=== PATIENT | female | born 1950 | race Caucasian/White ===

== ENCOUNTER 2017-04-28 22:56 | Inpatient (IN) | payer BC ==
[~2017-04-28] VITALS: Ht 162.6 cm; Wt 74.9 kg
--- NOTE | 2017-04-28 23:17 | NUR ---
DR MASTERS AT BEDSIDE FOR MSE
[2017-04-28 23:32] LABS: BASOPHIL % 0.4 % (0-2); PLATELET COUNT 260 x10^3mcL (130-400); RED CELL DISTRIBUTION WIDTH 12.6 % (11.5-14.5)
[2017-04-28 23:42] LABS: CALCIUM 8.8 mg/dL (8.5-10.1); CARBON DIOXIDE 26.9 mmol/L (21-32); CHLORIDE SERUM 104 mmol/L (98-107); CREATININE SERUM 0.9 mg/dL (0.6-1.0); GFR1 > 60 mL/min; GLUCOSE SERUM 103 mg/dL (74-106); POTASSIUM SERUM 3.4 mmol/L (3.5-5.1); SODIUM SERUM 140 mmol/L (136-145)
[2017-04-28 23:47] LABS: ALBUMIN 3.6 g/dL (3.4-5.0); ALKALINE PHOSPHATASE 82 U/L (46-116); ALT/SGPT 33 U/L (14-59); AST/SGOT 20 U/L (15-37); BILIRUBIN TOTAL 0.2 mg/dL (0.20-1.00); TOTAL PROTEIN, SERUM 6.9 g/dL (6.4-8.2)
--- NOTE | 2017-04-29 00:10 | NUR ---
ADMINISTERED 40MEQ OF K+ PO FOR K+ LEVEL OF 3.4 PER MD ORDER.
--- NOTE | 2017-04-29 00:16 | NUR ---
PLEASE ENTER FULL NAMES OF STUDENT/RN Documentation completed by (Student Nurse): Documentation reviewed by (Registered Nurse): [facility]
--- NOTE | 2017-04-29 01:19 | NUR ---
REPORT CALLED TO TIFFANIE DUMONT TO ASSUME CARE OF PT
--- NOTE | 2017-04-29 01:34 | NUR ---
PT RECEIVED FROM ER VIA GUERNEY, ACCOMPANIED BY NURSE. ORIENTED PT TO ROOM AND SURROUNDINGS. A/O X4. TELE #3, NSR, ADMITS TO 3/10 CHEST PAIN AND BACK PAIN, BUT REPORTS IT IS TOLERABLE. PT DENIES PAIN MEDS AT THIS TIME. PULSES PALPABLE, NO EDEMA NOTED. ON 02 2L NC, 02 SAT-95%. LUNG SOUNDS CTA. ABD IS SOFT AND NONDISTENDED. LAST BM-04/28/15, FORMED. VOIDS FREELY, DENIES PAIN UPON URINATION. PT IS AMBULATORY. SKIN IS INTACT. IVF INFUSING WELL TO LH, NS @ 100 ML/HR. BED IN LOWEST SETTING, SIDE RAILS UP X2, CALL LIGHT WITHIN REACH. WILL CONTINUE TO MONITOR.
[2017-04-29 02:10] VITALS: BP 125/60
[2017-04-29 02:22] LABS: CHOLESTEROL/HDL RATIO 4.1; PHOSPHOROUS 3.7 mg/dL (2.5-4.9)
[2017-04-29 02:29] LABS: FREE T4 0.94 ng/dL (0.76-1.46); FREE THYROXINE INDEX 2.4 ug/dL (1.4-4.5); T4(THYROXINE) 7.6 ug/dL (4.7-13.3)
[2017-04-29 03:04] LABS: UA SPECIFIC GRAVITY 1.015 (1.005-1.035); microscopic required? YES; urine erythrocyte TRACE (NEGATIVE)
[2017-04-29] MEDS ORDERED: ATORVASTATIN CA10 M1 (03:11)
[2017-04-29 05:19] LABS: T3 TOTAL 0.95 ng/mL
[2017-04-29 06:05] VITALS: BP 115/79
[2017-04-29 06:16] LABS: BASOPHIL % 0.5 % (0-2); PLATELET COUNT 235 x10^3mcL (130-400); RED CELL DISTRIBUTION WIDTH 13.1 % (11.5-14.5)
[2017-04-29 06:21] LABS: CALCIUM 8.7 mg/dL (8.5-10.1); CARBON DIOXIDE 26.6 mmol/L (21-32); CHLORIDE SERUM 108 mmol/L (98-107); CREATININE SERUM 0.8 mg/dL (0.6-1.0); GFR1 > 60 mL/min; GLUCOSE SERUM 95 mg/dL (74-106); POTASSIUM SERUM 4.5 mmol/L (3.5-5.1); SODIUM SERUM 144 mmol/L (136-145)
--- NOTE | 2017-04-29 06:43 | NUR ---
PT SLEPT WELL THROUGHOUT THE NIGHT. PT COMPLAINED OF MILD CHEST PAIN, BUT DECLINES MEDICATIONS FOR NOW. PT ADMITS TO BACK PAIN, ADMINISTERED NORCO ORDERED. IVF INFUSING WELL TO LH. WILL ENDORSE CARE TO AM NURSE.
--- NOTE | 2017-04-29 07:44 | NUR ---
PT RECEIVED DURING CHANGE OF SHIFT, A/OX4, TELE 3, NSR, DENIES CHEST PAIN AT THIS TIME, PULSES PRESENT, NO EDEMA, SCD'S AT BEDSIDE, LUNGS CTA ON RA, DENIES SOB, BREATHING EVEN AND UNLABORED, BOWEL SOUNDS ACTIVE, LBM 04/28/17 FORMED, ABLE TO URINATE, AMBULATORY, SKIN WARM DRY INTACT, MEDICATED FOR BACK PAIN WITH NORCO AT 0630 BY PREVIOUS RN, C/O BACK PAIN 04/24, WILL CONTINUE TO ASSESS FOR MEDICATION EFFECTIVENESS, IV TO LT HAND INFUSING NS AT 20ML/HR, CALL LIGHT WITHIN REACH, CALM AND COOPERATIVE AT THIS TIME, WILL CONTINUE TO MONITOR.
--- NOTE | 2017-04-29 08:55 | NUR ---
PT STATES BACK PAIN IS DOWN TO 5/10, DENIES SOB, PHARMACY NOTIFIED RN THAT PROTONIX IV NEEDS TO BE CHANGED TO PO, WILL NOTIFY RESIDENT, WILL CONTINUE TO MONITOR.
--- NOTE | 2017-04-29 09:06 | NUR ---
DR. JEAN AND RESIDENTS MAKING ROUNDS, PLAN OF CARE DISCUSSED.
[2017-04-29 09:12] VITALS: BP 122/57
--- NOTE | 2017-04-29 10:18 | NUR ---
PT C/O UPPER BACK PAIN 02/22, WILL MEDICATE PER EMAR, DENIES SOB, CALL LIGHT WITHIN REACH, WILL CONTINUE TO MONITOR.
--- NOTE | 2017-04-29 11:35 | NUR ---
PT STATES PAIN MEDICATION IS EFFECTIVE, DENIES SOB, BS 84, NO COVERAGE NEEDED, CALL LIGHT WITHIN REACH, WILL CONTINUE TO MONITOR.
--- NOTE | 2017-04-29 11:51 | NUR ---
ECHOCARDIOGRAM COMPLETED.
--- NOTE | 2017-04-29 12:23 | NUR ---
PT STATES BACK IS "FEELING MUCH BETTER, BUT JUST A LITTLE SORE", DENIES SOB, CALL LIGHT WITHIN REACH, WILL CONTINUE TO MONITOR.
--- NOTE | 2017-04-29 13:14 | NUR ---
PT DENIES SOB, DENIES PAIN, CALL LIGHT WITHIN REACH, WILL CONTINUE TO MONITOR.
--- NOTE | 2017-04-29 14:07 | NUR ---
PT STATES BACK IS STILL SORE, DENIES SOB, K-PAD IN PLACE, WILL REASSESS FOR PAIN, CALL LIGHT WITHIN REACH, VISITOR AT BEDSIDE, WILL CONTINUE TO MONITOR.
[2017-04-29 14:37] VITALS: BP 115/60
--- NOTE | 2017-04-29 15:08 | NUR ---
PT DENIES SOB, PT REQUESTING FLEXERIL TO SEE IF IT WILL HELP HER BACK, CALL LIGHT WITHIN REACH, WILL MEDICATE, WILL CONTINUE TO MONITOR.
[2017-04-29 16:21] VITALS: BP 114/61
--- NOTE | 2017-04-29 16:30 | NUR ---
PT DENIES SOB, DENIES PAIN, STATES THE MEDICATION HELPED BUT HAS NOT TAKEN AWAY ALL OF THE PAIN, CALL LIGHT WITHIN REACH, WILL CONTINUE TO MONITOR.
--- NOTE | 2017-04-29 17:21 | NUR ---
PT DENIES SOB, DENIES PAIN, AMBULATING THE HALLWAYS, WILL CONTINUE TO MONITOR.
--- NOTE | 2017-04-29 18:04 | NUR ---
PT FINSIHED EATING DINNER, STATES SHE IS STILL A BIT SORE, REFUSING PAIN MEDICATION AT THIS TIME, K-PAD IN PLACE, VISITOR AT BEDSIDE, CALL LIGHT WITHIN REACH, WILL ENDORSE TO NEXT SHIFT.
--- NOTE | 2017-04-29 18:23 | NUR ---
DIABETIC TEACHING COMPLETE.
--- NOTE | 2017-04-29 20:45 | NUR ---
DR MELO AT BEDSIDE TO PROVIDE OSTEOPATHIC THERAPY FOR BACK PAIN. PT TOLERATED WELL. REPORTS MODERATE PAIN RELIEF. WILL CONTINUE TO MONITOR.
[2017-04-29 21:28] VITALS: BP 103/55
--- NOTE | 2017-04-29 22:36 | NUR ---
PT A/O X4, SITTING IN CHAIR. TELE#3, NSR, DENIES CHEST PAIN AT THIS TIME. PULSES PALPABLE, NO EDEMA NOTED. SCDs AT BEDSIDE. LUNG SOUNDS CTA, BREATHING IS EVEN AND UNLABORED, PT DENIES SOB. ABD IS SOFT AND NONDISTENDED, BOWEL TONES ACTIVE X4 QUAD. LAST BM-04/28/17, FORMED. VOIDS FREELY WITHOUT PAIN. PT IS AMBULATORY WITH BRP. SKIN IS INTACT. PT REPORTS 4/10 BACK PAIN, WILL MEDICATE ORDERED. K-PAD IN PLACE. IVF INFUSING WELL TO LH, NS @ 20 ML/HR. BED IN LOWEST SETTING, SIDE RAILS UP X2, CALL LIGHT PLACED ON SIDE TABLE. WILL CONTINUE TO MONITOR.
--- NOTE | 2017-04-30 01:04 | NUR ---
PT ASLEEP IN BED AT THIS TIME, BUT IS EASILY AROUSABLE. BREATHING IS EVEN AND UNLABORED, NO DISTRESS NOTED. NO SIGNS OF PAIN OBSERVED AT THIS TIME. IVF INFUSING WELL. WILL CONTINUE TO MONITOR.
--- NOTE | 2017-04-30 03:52 | NUR ---
PT STATES SHE HAS BEEN SLEEPING VERY WELL, BUT REPORTS TO 4/10 UPPER BACK PAIN AND REQUESTS PAIN MEDS. ADMININISTERED NORCO ORDERED. NO RESPIRATORY DISTRESS OBSERVED. WILL MONITOR FOR PAIN RELIEF.
[2017-04-30 05:26] VITALS: BP 109/54
--- NOTE | 2017-04-30 07:10 | NUR ---
PT SLEPT WELL THROUGHOUT THE NIGHT. PT REPORTS PAIN MED HAD MODERATE RELIEF. PT DENIES CHEST PAIN AT THIS TIME. IVF INFUSING WELL. WILL ENDORSE CARE TO AM NURSE.
--- NOTE | 2017-04-30 07:15 | NUR ---
RECEIVED PATIENT AWAKE/ALERT IN BED NO COMPLAINTS, PATIENT WANT TO GO HOME TODAY STATE FEEL BETTER. INFORM PATIENT WHEN MD ROUNDS LATER WILL EXPLAINED POC. IV INTACT. CALL LIGHT WITHIN REACH.
[2017-04-30] MEDS ORDERED: CIPRO500 MG PO (07:18)
--- NOTE | 2017-04-30 08:58 | NUR ---
PATIENT SIT UP IN BED NO COMPLAINTS, DUE MEDS GIVEN. REFUSED LISINOPRIL/LOPRESSOR STATE BP IS NOT HIGH. WILL INFORM MD DURING ROUNDING. NEEDS ANTICIPATED.
--- NOTE | 2017-04-30 09:00 | NUR ---
DOCTOR ROUND THIS MORNING, PER DR. YBARRA POC D/C HOME THIS AFTER AND BP MEDS D/C.
[2017-04-30] MEDS ORDERED: IBUPROFEN400 MG PO (09:49)
[2017-04-30 10:01] VITALS: BP 109/54
[2017-04-30] MEDS ORDERED: LAC PO (10:03)
--- NOTE | 2017-04-30 11:32 | NUR ---
PATIENT SAT IN CHAIR NO COMPLAINTS, IV INTACT, BS 83 NO COVERAGE NEEDED. CONT TO MONITOR.
--- NOTE | 2017-04-30 12:04 | NUR ---
PATIENT ALREADY DRESS, IV DC'D AND TELE BOX DC'D; DISCHARGE INSTRUCTIONS AND PRESCRIPTION EXPLAINED. NO FURTHER QUESTIONS, DM TEACHING HANDOUTS GIVEN. PATIENT VERBALIZE WILL CALL DR.GLENN AHRDY ON MONDAY FOR F/U APPT. PATIENT STAY FOR LUNCH AND WAITING FOR DRIVE. WILL CALL WHEN READY.
--- NOTE | 2017-04-30 12:53 | NUR ---
[employer] WHEEL PATIENT OUT AT THIS TIME, ALL BELONGINGS WITH PATIENT. DISCHARGE HOME IN STABLE CONDITION AND DENIES PAIN.
== END 2017-04-30 12:50 | disposition home or self-care (01) | DRG 392 ==
LOC: ED 22:56 → DU 04-29 01:08
PROVIDERS: Emergency Medicine; Student in an Organized Health Care Education/Training Program; ADMIT Family Medicine
DX: K21.9 Gastro-esophageal reflux disease without esophagitis (principal); N39.0 Urinary tract infection, site not specified; G47.00 Insomnia, unspecified; E78.00 Pure hypercholesterolemia, unspecified; E78.2 Mixed hyperlipidemia; E87.6 Hypokalemia; D64.9 Anemia, unspecified; R73.03 Prediabetes; M54.9 Dorsalgia, unspecified; Z88.8 Allergy status to other drugs, medicaments and biological substances; Z72.89 Other problems related to lifestyle
CPT/HCPCS: 82962; 83880; 84439; J0696; J7030; Q0092